=== PATIENT | female | born 1940 | race Caucasian/White ===

== ENCOUNTER 2021-12-17 11:15 | Emergency (ER) | payer MEDICARE ==
[~2021-12-17 11:15] MED LIST: ATOR10TA69 PO; ESOM40CA54 PO; HYDR12.530 PO; LEVO50TA6 PO; MEDROL PACK PO
[2021-12-17 11:18] VITALS: BP 141/61
[2021-12-17] MEDS ORDERED: PANTOPRAZOLE 40 MG/VIAL IVP STA ×2 (11:18→11:29)
[2021-12-17] MEDS ORDERED: ONDANSETRON 4MG INJ IVP ONE (11:30)
[2021-12-17 11:43] LABS: BASOPHILS % (AUTO) 0.4 % (0.0-5.0); EOSINOPHILS % (AUTO) 0.9 % (0.0-8.0); HEMATOCRIT 36.3 % (36-48); LYMPHOCYTES % (AUTO) 41.6 % (21.0-51.0); MEAN CORPUSCULAR HEMOGLOBIN 30.6 pg (27.0-33.0); MEAN CORPUSCULAR HGB CONC 33.6 g/dL (32.0-36.0); MONOCYTES % (AUTO) 6.4 % (3.0-13.0); NEUTROPHILS % (AUTO) 50.5 % (40.0-77.0); PLATELET COUNT (AUTO) 193 K/uL (130-400); RED BLOOD CELL COUNT(AUTO) 3.99 MIL/uL (4.00-5.50); RED CELL DISTRIBUTION WIDTH 12.9 % (11.0-15.5); WHITE BLOOD COUNT (AUTO) 8.2 K/uL (4.8-10.8)
[2021-12-17 11:59] LABS: POTASSIUM 3.6 mmol/L (3.5-5.1)
[2021-12-17 12:03] LABS: INR 0.95 (0.85-1.15); PROTHROMBIN TIME 10.4 SEC (9.6-11.6)
[2021-12-17 12:05] LABS: ALBUMIN 3.5 g/dL (3.5-5.0); TOTAL PROTEIN, SERUM 6.7 g/dL (6.0-8.3)
[2021-12-17 12:11] LABS: B-TYPE NATRIURETIC PEPTIDE 43 pg/mL (0-100)
[2021-12-17] MEDS ORDERED: MAG/ALUM/SIMETH 30 ML UDCUP PO ONE ×2 (12:30→13:00)
[2021-12-17] MEDS ORDERED: DICYCLOMINE HCL 10 MG/5 ML ML PO ONE (12:30)
[2021-12-17] MEDS ORDERED: DICYCLOMINE HCL 10 MG/5 ML ML PO SCH (12:30)
[2021-12-17] MEDS ORDERED: LIDOCAINE HCL 2% VISCOUS 15 ML UDCUP PO ONE ×2 (12:30)
[2021-12-17] MEDS ORDERED: IOHEXOL 350 MG/ML 100ML INFUS..BTL IV ONE (13:02)
[2021-12-17] MEDS ORDERED: FAMOTIDINE 20MG VIAL IV STA (13:53)
[2021-12-17] MEDS ORDERED: PANT40TA55 PO (14:31)
== END 2021-12-17 14:51 | disposition home or self-care (01) ==
LOC: EDH 11:15
DX: K29.70 Gastritis, unspecified, without bleeding (principal); I10 Essential (primary) hypertension; K21.9 Gastro-esophageal reflux disease without esophagitis; E78.00 Pure hypercholesterolemia, unspecified; E03.9 Hypothyroidism, unspecified; Z88.0 Allergy status to penicillin; Z88.5 Allergy status to narcotic agent; Z88.7 Allergy status to serum and vaccine; Z79.899 Other long term (current) drug therapy
CPT/HCPCS: 99285; 96374; 71270; 71045; 96375; 82550; 84484 ×2; 80053; 83880; 83690; 85025; 85378; 85610; 85730; 36415; 93005; J2405; C9113; Q9967